=== PATIENT | female | born 1980 | race Caucasian/White ===

== ENCOUNTER 2017-05-15 17:00 | Emergency (ER) | payer MEDICAID ==
[~2017-05-15] VITALS: Ht 154.9 cm; Wt 63.5 kg
[2017-05-15 18:45] VITALS: BP 118/72
[2017-05-15] MEDS ORDERED: KETOROLAC TROMETHAMINE 60 MG/2 ML VIAL IM ONE (19:00)
== END 2017-05-15 19:28 | disposition home or self-care (01) ==
LOC: EMS 17:02
DX: M24.20 Disorder of ligament, unspecified site (principal)
CPT/HCPCS: 96372; 99283; J1885